=== PATIENT | female | born 1995 | race African-American/Black ===

== ENCOUNTER 2024-07-23 14:43 | Emergency (ER) | payer OTHER ==
[2024-07-23 15:09] VITALS: BP 125/91; RESP 19; TEMP 99; BMI 23.2
[2024-07-23] MEDS: LACTATED RINGERS SOLUTION 1000 ML INFUS.BAG IV ONE (15:53)
[2024-07-23 16:18] LABS: HEMATOCRIT 41.4 % (34.1-44.9); HEMOGLOBIN 14.1 g/dL (11.2-15.7); MCHC 34.1 g/dl (32.2-35.5); MEAN CELL VOLUME 95.4 fl (79.4-94.8); MEAN PLT VOLUME 9.8 fl (9.4-12.3); PLATELET COUNT 403 x10^3/uL (182-369); RDW 12.4 % (12.1-16.8)
[2024-07-23 16:33] LABS: CHLORIDE 102 mmol/L (98-107); POTASSIUM 4.1 mmol/L (3.5-5.1); SODIUM 138 mmol/L (136-145)
[2024-07-23 16:35] LABS: ALBUMIN 3.8 g/dl (3.4-5.0); ANION GAP 12 mmol/L (4-13); CALCIUM 9.7 mg/dL (8.5-10.1); CO2 24 mmol/L (21-32); GLUCOSE,RANDOM 104 mg/dL (74-106)
[2024-07-23 16:38] LABS: CREATININE 0.4 mg/dL (0.55-1.3); PHOSPHOROUS 4.1 mg/dL (2.5-4.9); SGOT/AST 94 U/L (15-37); SGPT/ALT 86 U/L (13-61)
[2024-07-23 16:40] LABS: BILIRUBIN,TOTAL 0.6 mg/dL (0.2-1); TOT PROT 7.7 g/dl (6.4-8.2)
[2024-07-23 16:41] LABS: ALK PHOS 124 U/L (45-117)
[2024-07-23 16:46] LABS: BLOOD UREA NITROGEN 2.6 mg/dL (7-18)
[2024-07-23 17:24] VITALS: PULSE 85
[2024-07-23 17:42] LABS: HCV DIAGNOSTIC IN-HOUSE W/RFLX NON-REACTIVE (NONREACTIVE)
[2024-07-23 21:16] LABS: HIV INTERPRETATION NEGATIVE (NEGATIVE)
== END 2024-07-23 17:29 | disposition home or self-care (01) ==
LOC: JER 14:43
DX: R53.1 Weakness (principal); E86.0 Dehydration; R20.2 Paresthesia of skin; R63.8 Other symptoms and signs concerning food and fluid intake; R53.83 Other fatigue; R63.1 Polydipsia; M62.838 Other muscle spasm; M79.10 Myalgia, unspecified site; M25.50 Pain in unspecified joint; M79.606 Pain in leg, unspecified
CPT/HCPCS: 0241U-QW; 36415; 80053; 83735; 84100; 84443; 85025; 86803; 86850; 86900; 86901; 87389; 99283-25

== ENCOUNTER 2024-07-27 14:00 | Emergency (ER) | payer OTHER ==
[2024-07-27 14:12] VITALS: BP 113/80; PULSE 94; RESP 20; TEMP 99.4; BMI 23.0
[2024-07-27 15:26] LABS: HEMATOCRIT 39.4 % (34.1-44.9); HEMOGLOBIN 13.5 g/dL (11.2-15.7); MCHC 34.3 g/dl (32.2-35.5); MEAN CELL VOLUME 94.9 fl (79.4-94.8); MEAN PLT VOLUME 9.7 fl (9.4-12.3); PLATELET COUNT 431 x10^3/uL (182-369); RDW 12.2 % (12.1-16.8)
[2024-07-27 15:52] LABS: CHLORIDE 103 mmol/L (98-107); POTASSIUM 3.7 mmol/L (3.5-5.1); SODIUM 138 mmol/L (136-145)
[2024-07-27 15:55] LABS: ALBUMIN 3.7 g/dl (3.4-5.0); ANION GAP 10 mmol/L (4-13); CO2 26 mmol/L (21-32); GLUCOSE,RANDOM 104 mg/dL (74-106)
[2024-07-27 15:56] LABS: MAGNESIUM 1.8 mg/dL (1.8-2.4)
[2024-07-27 15:58] LABS: CREATININE 0.5 mg/dL (0.55-1.3); PHOSPHOROUS 3.2 mg/dL (2.5-4.9); SGPT/ALT 84 U/L (13-61)
[2024-07-27 15:59] LABS: BILIRUBIN,TOTAL 0.6 mg/dL (0.2-1); SGOT/AST 95 U/L (15-37); TOT PROT 7.1 g/dl (6.4-8.2)
[2024-07-27 16:01] LABS: ALK PHOS 114 U/L (45-117)
[2024-07-27 16:11] LABS: BLOOD UREA NITROGEN 2.5 mg/dL (7-18)
[2024-07-27 17:25] LABS: CHLORIDE 103 mmol/L (98-107); POTASSIUM 3.6 mmol/L (3.5-5.1); SODIUM 137 mmol/L (136-145)
[2024-07-27 17:26] LABS: ANION GAP 9 mmol/L (4-13); CALCIUM 9.5 mg/dL (8.5-10.1); CO2 25 mmol/L (21-32)
[2024-07-27 17:27] LABS: GLUCOSE,RANDOM 108 mg/dL (74-106); MAGNESIUM 1.7 mg/dL (1.8-2.4)
[2024-07-27 17:30] LABS: CREATININE 0.5 mg/dL (0.55-1.3)
[2024-07-27] MEDS ORDERED: FOLIC ACID 1 MG TABLET (FP) ONE (17:44)
[2024-07-27] MEDS ORDERED: THIAMINE 100 MG TABLET ONE (17:44)
[2024-07-27] MEDS: THIAMINE 100 MG TABLET PO ONE (17:51)
[2024-07-27] MEDS: FOLIC ACID 1 MG TABLET (FP) PO ONE (17:51)
[2024-07-27] MEDS ORDERED: MAGNESIUM OXIDE 400 MG TABLET (FP) ONE (18:40)
[2024-07-27] MEDS: MAGNESIUM OXIDE 400 MG TABLET (FP) PO ONE (18:46)
[2024-07-27 18:53] LABS: POTASSIUM 3.5 mmol/L (3.5-5.1)
[2024-07-27 18:54] LABS: CALCIUM 9.4 mg/dL (8.5-10.1)
[2024-07-27 18:55] LABS: BLOOD UREA NITROGEN 3.1 mg/dL (7-18); MAGNESIUM 1.5 mg/dL (1.8-2.4)
[2024-07-27 18:58] LABS: CREATININE 0.6 mg/dL (0.55-1.3)
== END 2024-07-27 19:16 | disposition home or self-care (01) ==
LOC: JERFT 14:00
DX: R20.0 Anesthesia of skin (principal); R20.2 Paresthesia of skin
CPT/HCPCS: 36415; 80048; 80053; 83735; 84100; 84703; 85025; 99283-25